=== PATIENT | male | born 1965 | race Caucasian/White ===

== ENCOUNTER 2017-06-26 09:18 | Emergency (ER) | payer MEDICAID ==
[2017-06-26 09:28] VITALS: RESP 18
--- NOTE | 2017-06-26 09:41 | EDPHY ---
H & P Stated Complaint: Midsternal "soreness" x 1 wk;thinks pulse is irreg HPI/ROS: CHIEF COMPLAINT: Palpitations HISTORY OF PRESENT ILLNESS: The patient is a 52 y/o male complaining of intermittent "heart fluttering" for the last week that feels constant today. He has a history of depression for which he takes Wellbutrin and Fluoxetine and two prior episodes of atrial fibrillation once requiring cardioversion. He is not on medication for atrial fibrillation. He notes he took 4-5 extra fluoxetine over the last couple days, but not today, in an attempt to treat his symptoms. He describes the rhythm as "a pause, stop-go" and says it's been making him too anxious to sleep. He was counting extra beats every 8-9 beats last night. He denies chest pain, cough, cold, diarrhea, vomiting, abdominal pain, dyspnea, recent trauma, recent illness. REVIEW OF SYSTEMS: A ten point review of systems was performed and is negative with the exception of the items mentioned in the HPI. Past medical history: Depression - Wellbutrin & Fluoxetine; 2 episodes of atrial fibrillation once requiring cardioversion. Past surgical history: Noncontributory Family history: Noncontributory Social history: Nonsmoker. No alcohol use. No illicit drug use. Works as a running charter coach driver. Workflow Developer: Krystina Kathleen. General Appearance: Alert. Vital signs reviewed. HR 56 at triage. Eyes: Pupils equal and round, no conjunctival injection, no discharge. Anicteric. ENT, Mouth: Mucous membranes are moist, no oropharyngeal erythema or edema. Neck: No lymphadenopathy, supple. Respiratory: Lungs are clear to auscultation; no wheezes, rales, or rhonchi. Cardiovascular: Rare ectopy, otherwise regular rate and rhythm; no murmur, rub , or gallop. Gastrointestinal: Abdomen is soft and nontender, no masses or organomegaly, bowel sounds normal. Skin: Warm and dry, no rashes on exposed skin, normal color. Back: Nontender to palpation over the thoracolumbar spine. No CVAT. Extremities: No lower extremity edema, no calf tenderness or swelling. Neurological: Alert and oriented. Moving all four extremities easily and equally. Psychiatric: Normal affect. - Personal History Current Tetanus Diphtheria and Acellular Pertussis (TDAP): Unsure - Medical/Surgical History Other PMH: afib in past by hx (~20yrs ago). depression - Social History Smoking Status: Never smoked Constitutional: Initial Vital Signs Temperature (C) 36.4 C 06/26/17 09:23 Heart Rate 56 L 06/26/17 09:23 Respiratory Rate 18 06/26/17 09:23 Blood Pressure 118/73 06/26/17 09:23 O2 Sat (%) 97 06/26/17 09:23 O2 Delivery Mode Room Air Allergies/Adverse Reactions: No Known Allergies Allergy (Unverified 06/26/17 09:23) Home Medications: Medication Instructions Recorded FLUoxetine [PROzac] 10 mg PO 06/26/17 Zolpidem Tartrate [Ambien 5MG (*)] 5 mg PO HS PRN #5 tab 06/26/17 buPROPion [Wellbutrin] 100 mg PO 06/26/17 Medical Decision Making - Diagnostics Imaging: I viewed and interpreted images myself ED Course/Re-evaluation: This is a relatively healthy 52 y/o male who presents with a 1-week history of intermittent "heart fluttering" and sensation of extra heart beats. He has a rare ectopic beat on auscultation, but otherwise has a normal exam. Monitor shows occasional PAC. Plan for IV, labs, EKG, chest x-ray. The 12 lead EKG was interpreted by myself. Sinus rhythm. See hard copy and/or "tracemaster" electronic copy for interpretation. Chest x-ray: negative for acute process. Reassessed patient and discussed work up. Labs are normal, specifically troponin is not elevated and D dimer not abnormal. He will be discharged with Tyra for insomnia and referral to v[facility] digital marketing for follow up. I do not find evidence of ongoing arrhythmia. No atrial fibrillation seen while in ED. I do not suspect ACS. Nothing to suggest infection--pericarditis, pneumonia. I think that his concern about the PACs that he is feeling has heightened his anxiety and resulted in loss of sleep. Return precautions discussed. - Data Points Laboratory Results: Laboratory Results 06/26/17 10:45 06/26/17 10:45 Medications Given: Discontinued Medications Aspirin (Aspirin) 324 mg PO EDNOW ONE Stop: 06/26/17 09:50 Last Admin: 06/26/17 10:13 Dose: 324 mg Sodium Chloride (Ns) 500 mls @ 0 mls/hr IV ONCE ONE PRN Reason: Wide Open Stop: 06/26/17 10:07 Last Admin: 06/26/17 10:14 Dose: 500 mls Departure - Departure Disposition: Home, Routine, Self-Care Clinical Impression: PAC (premature atrial contraction) Insomnia Qualifiers: Insomnia type: unspecified Qualified Code(s): G47.00 - Insomnia, unspecified Condition: Good Instructions: Zolpidem (By mouth), Insomnia (ED), Premature Atrial Contractions (ED) Additional Instructions: Follow up with your [facility] this week. Do not exceed recommended doses of your medications. Use Ambien as prescribed when needed for insomnia. Return to the ED for worsening of condition. Referrals: Raymond Millard MD [Primary Care Provider] - As per Instructions Jonathan Clarke MD [Medical Doctor] - As per Instructions Prescriptions: Zolpidem Tartrate [Ambien 5MG (*)] 5 mg PO HS PRN #5 tab PRN Reason: insomnia Report Scribed for: Alison Banuelos Report Scribed by: Malgorzata Millan Date of Report: 06/26/17 Time of Report: 10:10 Physician Review and Approval Statement: 06/26/17 09:41 Portions of this note were transcribed by the electromedical equipment technician. I, Dr. Alison Banuelos, personally performed the history, physical exam, and medical decision- making; and confirmed the accuracy of the information in the transcribed note.
--- NOTE | 2017-06-26 09:41 | CPEKG ---
Heart Rate: 54 RR Interval: 1111 P-R Interval: 144 QRSD Interval: 102 QT Interval: 424 QTC Interval: 402 P [place]: 65 QRS [place]: 41 T Wave [place]: -20 EKG Severity - BORDERLINE ECG - EKG Impression: SINUS RHYTHM EKG Impression: BORDERLINE T ABNORMALITIES, INFERIOR LEADS Electronically Signed By: Alison Banuelos 26-Jun-2017 15:00:26
[2017-06-26] MEDS ORDERED: ASPIRIN 81 MG CHEWABLE TAB PO ONE (09:49)
[2017-06-26] MEDS ORDERED: NS 500 ML IV ONE (10:06)
[2017-06-26] MEDS ORDERED: NS 1,000 ML IV ONE (10:10)
[2017-06-26 10:54] LABS: PLATELET COUNT 157 10^3/uL (150-400)
[2017-06-26 11:59] VITALS: BP 118/75; PULSE 79; TEMP 98.1; O2SAT 98
== END 2017-06-26 11:57 | disposition home or self-care (01) ==
DX: I49.1 Atrial premature depolarization (principal); G47.00 Insomnia, unspecified